=== PATIENT | male | born 1990 | race Caucasian/White ===

== ENCOUNTER 2020-12-04 20:32 | Emergency (ER) | payer OTHER ==
[2015-12-25 15:12] VITALS: BP 157/93
[~2020-12-04 20:32] MED LIST: PENI500T PO; TRAM-48 PO
== END 2020-12-04 22:56 | disposition left against medical advice (07) ==
LOC: ER 20:32
DX: K04.7 Periapical abscess without sinus (principal); Z53.21 Procedure and treatment not carried out due to patient leaving prior to being seen by health care provider